=== PATIENT | male | born 1995 | race Caucasian/White ===

== ENCOUNTER 2019-08-18 23:05 | Emergency (ER) | payer BC ==
[2019-08-18 23:14] VITALS: TEMP 98.4
[2019-08-18] MEDS ORDERED: KETOROLAC 30 MG/ML 1 ML VIAL IVP STA (23:38)
[2019-08-18] MEDS ORDERED: SODIUM CHLORIDE 0.9% 1,000 ML IV ONE (23:38)
--- NOTE | 2019-08-18 23:56 | XR ---
EXAMINATION TYPE: XR ankle complete RT DATE OF EXAM: 08/18/2019 COMPARISON: NONE HISTORY: Ankle pain TECHNIQUE: 3 views FINDINGS: Ankle mortise is anatomic. There is no sign of fracture nor dislocation. Joint spaces are f airly normal. IMPRESSION: Negative right ankle exam.
[2019-08-19 00:13] LABS: Basophils # (A) 0.1 k/uL (0-0.2); Basophils % (A) 1 %; Eosinophils # (A) 0.3 k/uL (0-0.7); Eosinophils % (A) 3 %; HCT 46.6 % (39.0-53.0); HGB 16.3 gm/dL (13.0-17.5); Lymphocytes # (A) 2.7 k/uL (1.0-4.8); Lymphocytes % (A) 28 %; MCH 30.4 pg (25.0-35.0); MCV 86.9 fL (80.0-100.0); Mean Platelet Volume 6.7; Monocytes # (A) 0.7 k/uL (0-1.0); Monocytes % (A) 7 %; Neutrophils # (A) 5.8 k/uL (1.3-7.7); Neutrophils % (A) 60 %; Platelet Count 258 k/uL (150-450); RBC 5.36 m/uL (4.30-5.90); RDW 12.1 % (11.5-15.5); WBC 9.7 k/uL (3.8-10.6)
[2019-08-19 00:25] LABS: ALT 37 U/L (4-49); AST 34 U/L (17-59); African American GFR (CKD) >90 (>60 ml/min/1.73 sqM); Albumin 4.8 g/dL (3.5-5.0); Alkaline Phosphatase 155 U/L (38-126); Anion Gap 10 mmol/L; Blood Urea Nitrogen 24 mg/dL (9-20); C Reactive Protein <5.0 mg/L (<10.0); Carbon Dioxide 24 mmol/L (22-30); Chloride 106 mmol/L (98-107); Glucose 106 mg/dL (74-99); Non-African American GFR(CKD) >90 (>60 ml/min/1.73 sqM); Potassium 4.2 mmol/L (3.5-5.1); Sodium 140 mmol/L (137-145); Total Bilirubin 0.6 mg/dL (0.2-1.3); Total Protein 7.5 g/dL (6.3-8.2); Uric Acid 5.6 mg/dL (3.5-8.5)
[2019-08-19 01:00] LABS: Erythrocyte Sedimentation Rate 2 mm/hr (0-15)
--- NOTE | 2019-08-19 01:10 | ED ---
Lower Extremity Injury HPI - General Chief Complaint: Extremity Injury, Lower Stated Complaint: Ankle Pain Time Seen by Provider: 08/18/19 23:15 Source: patient Mode of arrival: ambulatory Limitations: no limitations - History of Present Illness Initial Comments: Shawn is a previously healthy 23yo M presents to the ER today for evaluation of right ankle pain. Patient reports he has broken ankle once in the distant past and had ankle sprains before but doesn't know of any recent injuries. Patient does not that he has multiple bug bites or some type of contact dermatitis Steve on the ankle but states that that hasn't been bothering him. Patient states that he developed severe pain in the ankle today and felt like he couldn't walk on it and it hurt to move the ankle. He took some Motrin but didn't get any better he states been so severe he's been using crutches to ambulate. He denies associated fevers chills nausea vomiting illness. He denies any pain in any other joints. Denies any history or family history of gout. - Related Data Previous Rx's Medication Instructions Recorded Naproxen [Naprosyn] 500 mg PO Q12HR #24 tab 02/23/15 Cephalexin [Keflex] 500 mg PO Q6HR 3 Days #12 cap 08/19/19 Cephalexin [Keflex] 500 mg PO Q6HR 3 Days #12 cap 08/19/19 Ibuprofen [Motrin] 600 mg PO Q6HR PRN #30 tab 08/19/19 Ibuprofen [Motrin] 600 mg PO Q6HR PRN #30 tab 08/19/19 Allergies Allergy/AdvReac Type Severity Reaction Status Date / Time amoxicillin Allergy Rash/Hives Verified 08/18/19 23:12 Review of Systems ROS Statement: Those systems with pertinent positive or pertinent negative responses have been documented in the HPI. ROS Other: All systems not noted in ROS Statement are negative. Past Medical History Past Medical History: Thyroid Disorder Additional Past Medical History / Comment(s): hyperactive thyroid, History of Any Multi-Drug Resistant Organisms: None Reported Past Surgical History: No Surgical Hx Reported Past Psychological History: No Psychological Hx Reported Smoking Status: Never smoker Past Alcohol Use History: Occasional Past Drug Use History: None Reported General Exam - General Exam Comments Initial Comments: Physical Exam GENERAL: Patient is well-developed and well-nourished. Patient is nontoxic and well-hydrated and is in no distress. HENT: Normocephalic, Atraumatic. EYES: PERRL, EOMI PULMONARY: Unlabored respirations. CARDIOVASCULAR: RRR Warm and well perfused extremities ABDOMEN: Non-distended SKIN: No rashes or bruising : Deferred NEUROLOGIC: Alert and oriented Normal speech Normal gait MUSCULOSKELETAL: decreased active ROM of right ankle, resists passive ROM Overlying cellulitis, no obvious joint effusion noted PSYCHIATRIC: No SI/HI Limitations: no limitations Course Vital Signs 08/18/19 08/19/19 23:09 01:24 Temperature 98.4 F Pulse Rate 111 H 91 Respiratory 16 18 Rate Blood Pressure 150/73 119/68 O2 Sat by Pulse 98 96 Oximetry Medical Decision Making - Medical Decision Making Patient was seen and evaluated immediately upon arrival to the emergency depar tment history is obtained from the patient. So well-appearing 23-year-old male with decreased range of motion of the right ankle secondary to pain. There is some overlying what appears to be cellulitis likely due to either small bug bite such as sand fleas or some type of contact dermatitis. Next no obvious joint effusion. Labs were obtained and were relatively unremarkable other Snow elevation of inflammatory markers. Uric acid is normal he has no metabolic conditions or family history was suggest gout. These results were discussed with patient as well as his normal x-ray. I did offer a computed tomography scan of the ankle for further evaluation the patient declined stating that he is feeling better after Toradol and is comfortable with the plan for going home with Motrin. He will be prescribed Keflex for cellulitis. He'll be referred to orthopedics for follow-up if he has persistent pain. All questions pertaining care were answered return parameters were discussed patient was discharged home in stable condition. - Lab Data Result diagrams: 08/19/19 00:00 08/19/19 00:00 Lab Results 08/19/19 08/19/19 Range/Units 00:00 00:00 WBC 9.7 (3.8-10.6) k/uL RBC 5.36 (4.30-5.90) m/uL Hgb 16.3 (13.0-17.5) gm/dL Hct 46.6 (39.0-53.0) % MCV 86.9 (80.0-100.0) fL MCH 30.4 (25.0-35.0) pg MCHC 35.0 (31.0-37.0) g/dL RDW 12.1 (11.5-15.5) % Plt Count 258 (150-450) k/uL Neutrophils % 60 % Lymphocytes % 28 % Monocytes % 7 % Eosinophils % 3 % Basophils % 1 % Neutrophils # 5.8 (1.3-7.7) k/uL Lymphocytes # 2.7 (1.0-4.8) k/uL Monocytes # 0.7 (0-1.0) k/uL Eosinophils # 0.3 (0-0.7) k/uL Basophils # 0.1 (0-0.2) k/uL ESR 2 (0-15) mm/hr Sodium 140 (137-145) mmol/L Potassium 4.2 (3.5-5.1) mmol/L Chloride 106 (98-107) mmol/L Carbon Dioxide 24 (22-30) mmol/L Anion Gap 10 mmol/L BUN 24 H (9-20) mg/dL Creatinine 0.93 (0.66-1.25) mg/dL Est GFR (CKD-EPI)AfAm >90 (>60 ml/min/1.73 sqM) Est GFR (CKD-EPI)NonAf >90 (>60 ml/min/1.73 sqM) Glucose 106 H (74-99) mg/dL Uric Acid 5.6 (3.5-8.5) mg/dL Calcium 10.0 (8.4-10.2) mg/dL Total Bilirubin 0.6 (0.2-1.3) mg/dL AST 34 (17-59) U/L ALT 37 (4-49) U/L Alkaline Phosphatase 155 H (38-126) U/L C-Reactive Protein <5.0 (<10.0) mg/L Total Protein 7.5 (6.3-8.2) g/dL Albumin 4.8 (3.5-5.0) g/dL Salicylates 1.0 mg/dL Disposition Clinical Impression: Right ankle pain, Cellulitis Disposition: HOME SELF-CARE Prescriptions: Cephalexin [Keflex] 500 mg PO Q6HR 3 Days #12 cap Cephalexin [Keflex] 500 mg PO Q6HR 3 Days #12 cap Ibuprofen [Motrin] 600 mg PO Q6HR PRN #30 tab PRN Reason: Pain Ibuprofen [Motrin] 600 mg PO Q6HR PRN #30 tab PRN Reason: Pain Is patient prescribed a controlled substance at d/c from ED?: No Referrals: Hayden Adler MD [Primary Care Provider] - 1-2 days [facility] [Provider Group] - 1-2 days [facility] [Provider Group] - 1-2 days
[2019-08-19 01:26] VITALS: BP 119/68; PULSE 91; RESP 18
== END 2019-08-19 01:30 | disposition home or self-care (01) ==
LOC: EC 23:05
DX: L03.115 Cellulitis of right lower limb (principal); M25.571 Pain in right ankle and joints of right foot; Z88.0 Allergy status to penicillin
CPT/HCPCS: 36415 ×2; 80053; 85652; 84550; 85025; 86140; 87040; 83520; 73610; 99283; 96374; 96361; J1885